=== PATIENT | female | born 1995 | race Two or more races ===

== ENCOUNTER 2025-06-20 07:52 | Outpatient (CLI) | payer OTHER | END 2025-06-20 07:53 | disposition home or self-care (01) | LOC: PRENATAL 07:52 | PROVIDERS: ATTEND Obstetrics & Gynecology Maternal & Fetal Medicine | DX: O36.80X0 Pregnancy with inconclusive fetal viability, not applicable or unspecified (principal); Z36.82 Encounter for antenatal screening for nuchal translucency; Z3A.11 11 weeks gestation of pregnancy ==

== ENCOUNTER 2025-08-19 08:14 | Outpatient (CLI) | payer OTHER | END 2025-08-19 08:34 | disposition home or self-care (01) | LOC: PRENATAL 08:14 | PROVIDERS: ATTEND Obstetrics & Gynecology Maternal & Fetal Medicine | DX: O44.02 Complete placenta previa NOS or without hemorrhage, second trimester (principal); O99.282 Endocrine, nutritional and metabolic diseases complicating pregnancy, second trimester; O28.3 Abnormal ultrasonic finding on antenatal screening of mother; Z3A.20 20 weeks gestation of pregnancy ==